=== PATIENT | male | born 1930 | race Caucasian/White ===

== ENCOUNTER 2016-09-06 22:38 | Emergency (ER) | payer MEDICARE, OTHER ==
[2016-09-06 22:59] VITALS: BP 138/57
== END 2016-09-06 23:50 | disposition left against medical advice (07) ==
LOC: ER 22:38
DX: Z53.21 Procedure and treatment not carried out due to patient leaving prior to being seen by health care provider (principal)

== ENCOUNTER → 2016-10-04 | Outpatient (CLI) | payer MEDICARE, OTHER ==
--- NOTE | 2016-10-05 16:34 | RADIOLOGY REPORT (SQ) ---
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 TECHNIQUE: Blood glucose level was verified. Above dose of FDG was injected intravenously. 2-D seg mented attenuation correction images were obtained from the base of the skull to the midthighs. Nonc ontrast CT images were obtained for attenuation correction and fusion with emission images. CT image s were performed without oral or intravenous contrast and are not sensitive for parenchymal lesions. A series of overlapping emission PET images were obtained. Images reviewed and manipulated at [facility] by the radiologist. Images stored on PACS. LIMITATIONS: None. FINDINGS: HEAD AND NECK: A 1.5 x 1.3 cm nodule is present at the angle of mandible on axial image 37 with SUV of 7.4. 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 CHEST: No areas of abnormal metabolic activity in the chest. ABDOMEN AND PELVIS: No areas of abnormal metabolic activity in the abdomen or pelvis. Expected physi ologic activity is present in the genitourinary system and bowel. PROXIMAL LOWER EXTREMITIES: No areas of abnormal metabolic activity in the soft tissues of the lower extremities. BONES: No abnormal metabolic activity in the visualized skeleton. Diffuse degenerative changes lumba r spine ADDITIONAL CT FINDINGS: Pacemaker. Post appendectomy and prostatectomy. OTHER: Blood pool activity 1.7 SUV, liver activity 2.0 SUV IMPRESSION: Solitary hypermetabolic lymph node in the right neck. TECHNICAL DOCUMENTATION: JOB ID: [id number] [employer]- All Rights Reserved
== END ==
LOC: RAD 19:32
PROVIDERS: ATTEND Otolaryngology
DX: C76.0 Malignant neoplasm of head, face and neck (principal)
CPT/HCPCS: 78815; A9552

== ENCOUNTER → 2016-11-12 | Outpatient (CLI) | payer MEDICARE, OTHER ==
[~2016-11-12] MED LIST: AMINOPHYLLINE INJ/PF 250 MG/10 ML SDV IV ONE; REGADENOSON INJ 0.4 MG/5 ML DISP.SYRIN IV ONE
--- NOTE | 2016-11-13 10:47 | DRAGON STRESS TEST REPORT ---
INTRAVENOUS LEXISCAN CARDIOLITE STRESS TEST USING SINGLE PHOTON EMMISION COMPUTERIZED TOMOGRAPHIC. INDICATION : Angina pectoris CARDIAC RISK FACTORS: Hypertension, RESTING EKG: Sinus rhythm, nonspecific T-wave inversion noted lateral and inferior shani STRESS EKG: No significant changes noted with LexiScan bolus REASON FOR TERMINATION: Protocol. PROCEDURE REPORT: Baseline heart rate 60 beats per minute with blood pressure of 152/80. Patient had no significant complaints. Heart rate at 2 minutes post bolus 85 with a blood pressure of 149/76. 3 minutes post bolus heart rate 83 with blood pressure of 166/79. No significant EKG changes were noted. Patient had no significant complaints during the procedure or postprocedure. Patient injected with Aminophyllin 75 mg at 3 minutes or later after Lexiscan bolus. CONCLUSIONS: Normal EKG and hemodynamic response to IV LexiScan. NUCLEAR DATA: At rest the patient was given [10.13] millicuries of technetium 99 sestamibi injected intravenously. As per protocol rest gated SPECT images were obtained. Subsequently the patient was given intravenous LexiScan at a dose of 0.4 mg in 5 mL intravenously, followed by flush with normal saline. Subsequently the stress dose of [30.7] millicuries of technetium 99 sestamibi was injected intravenously. As per protocol stress gated images were obtained. NUCLEAR INTERPRETATION: Both raw and processed data were used for interpretation. Visual, qualitative, computer-generated quantitative data was used. There was good myocardial uptake of technetium compound. Motion artifact and soft tissue attenuations were noted. Increased visceral uptake was noted. No definitive areas of transient perfusion defect noted. No definitive areas of fixed perfusion defect or scars noted. Normal apical thinning noted, based on decreased uptake just at the LV apex but no corresponding apical wall motion abnormalities were noted. EKG gated imaging showed LV EF at 59 %, rest and stress gated EF similar visually. T. I D. ratio was 1.12. Lung heart ratio noted to be within normal limits 0.31. No significant extracardiac and abnormal radiotracer activities were noted. RV free wall uptake was noted to be WNL. IMPRESSION: Also refer to comments under nuclear interpretation. Also test results needs to be interpreted in the context of pretest probability. 1. There is no definitive scintigraphic evidence of LexiScan induced myocardial ischemia. 2. There is no definitive scintigraphic evidence of myocardial infarction/ scar. Normal apical thinning noted, based on decreased uptake just at the LV apex but no corresponding apical wall motion abnormalities were noted. 3. EKG gated imaging shows left ventricular ejection fraction of approximately 59 %. 4. Clinical correlation requested as occasionally single vessel disease or balanced ischemia could be missed. In approximately 10% of the cases Lexiscan may not cause adequate vasodilatory stress. RECOMMENDATIONS: Aggressive risk factor modification, medical therapy. Clinical correlation with echocardiogram derived ejection fraction. Inability to exercise by itself can lead to increased cardiovascular event risks. Consider cardiology consultation and or follow-up if clinically indicated. I AM AVAILABLE FOR CARDIOLOGY CONSULTATION AND FOLLOWUP IF REQUESTED BY PMD Reddy Styles M.D., CHRIS Pneumatic Jack Operator golf ball molder, Board certified in cardiovascular diseases, Nuclear cardiology, Echocardiography Cardiac CT and cardiac MRI Ph. [phone] [facility]
== END ==
LOC: RAD 07:19
DX: I42.9 Cardiomyopathy, unspecified (principal)
CPT/HCPCS: 93017; 78452; A9500; J2785; J0280; Q9969

== ENCOUNTER 2017-11-15 22:35 | Emergency (ER) | payer MEDICARE, OTHER ==
[2017-11-16] MEDS ORDERED: OXYMETAZOLINE HCL 0.05% NASAL SPRAY 15 ML BOTTLE NASL ONE (00:11)
--- NOTE | 2017-11-16 00:11 | ER Document Report ---
ED General - General Chief Complaint: Nose Bleed Stated Complaint: NOSE BLEED Time Seen by Provider: 11/15/17 23:38 Notes: Patient is an 87-year-old male with a past medical history of atrial fibrillation currently anticoagulated on Xarelto who presents with complaints of epistaxis from his left nostril that has been intermittent for the past 3-4 hours. Patient has tried treating the bleeding with direct pressure which he states has not been successful in getting the bleeding to stop permanently. No history of similar symptoms in the past. He does describe the amount of bleeding as mild. He denies any associated lightheadedness, orthostasis, chest pain, shortness of breath, vomiting or syncope. He has not contacted his general doctor regarding today's concerns. No obvious trigger for today's episode although he does admit to nose picking. TRAVEL OUTSIDE OF THE [place] IN LAST 30 DAYS: No - Related Data Allergies/Adverse Reactions: No Known Allergies Allergy (Verified 07/26/15 05:17) Past Medical History - General Information source: Patient - Social History Smoking Status: Never Smoker Frequency of alcohol use: None Drug Abuse: None Lives with: Family Family History: Reviewed & Not Pertinent Patient has suicidal ideation: No Patient has homicidal ideation: No - Past Medical History Cardiac Medical History: Reports: Hx Hypertension Pulmonary Medical History: Neurological Medical History: Renal/ Medical History: Denies: Hx Peritoneal Dialysis Malignancy Medical History: Reports Hx Prostate Cancer GI Medical History: Reports: Hx Gastroesophageal Reflux Disease Musculoskeletal Medical History: Past Surgical History: Reports: Hx Cardiac Surgery - pacer, Hx Urinary Tract Surgery - PROSTATECTOMY - Immunizations Hx Diphtheria, Pertussis, Tetanus Vaccination: No Hx Pneumococcal Vaccination: 03/29/02 Review of Systems - Review of Systems Notes: Constitutional: Negative for fever. HENT: Positive for nosebleed Eyes: Negative for visual changes. Cardiovascular: Negative for chest pain. Respiratory: Negative for shortness of breath. Gastrointestinal: Negative for abdominal pain, vomiting or diarrhea. Genitourinary: Negative for dysuria. Musculoskeletal: Negative for back pain. Skin: Negative for rash. Neurological: Negative for headaches, weakness or numbness. 10 point ROS negative except as marked above and in HPI. Physical Exam - Vital signs Vitals: Temp Pulse Resp BP Pulse Ox 97.8 F 65 18 190/86 H 93 11/15/17 22:51 11/15/17 22:51 11/15/17 22:51 11/15/17 22:51 11/15/17 22:51 Interpretation: Hypertensive Notes: PHYSICAL EXAMINATION: GENERAL: Well-appearing, well-nourished and in no acute distress. HEAD: Atraumatic, normocephalic. EYES: Pupils equal round and reactive to light, extraocular movements intact, sclera anicteric, conjunctiva are normal. ENT: nares patent, small excoriation to the mid central nasal septum on the left without active bleeding, oropharynx clear without exudates. Moist mucous membranes. NECK: Normal range of motion, supple without lymphadenopathy LUNGS: Breath sounds clear to auscultation bilaterally and equal. No wheezes rales or rhonchi. HEART: Regular rate and rhythm without murmurs ABDOMEN: Soft, nontender, normoactive bowel sounds. No guarding, no rebound. No masses appreciated. EXTREMITIES: Normal range of motion, no pitting or edema. No cyanosis. NEUROLOGICAL: No focal neurological deficits. Moves all extremities spontaneously and on command. PSYCH: Normal mood, normal affect. SKIN: Warm, Dry, normal turgor, no rashes or lesions noted. Course - Re-evaluation Re-evalutation: 11/16/17 00:09 Patient presents with intermittent epistaxis from the left naris that has now stopped. On examination patient has no active bleeding. He is on Xarelto for atrial fibrillation. Evaluation of the left naris shows that there is a superficial scratch along the nasal septum. No active bleeding but given that he had had recurrent bleeding from the area silver nitrate was applied to the area to prevent recurrent bleeding. Oxymetazoline was then instilled in the nostril. I do not believe labs are indicated as the patient has only had a trickling bleed per family at the bedside and has no active bleeding at this time. Vitals are likewise within normal limits. Patient is agreement with avoiding labs at this point. No additional exam findings or concerning features in history. At this time will discharge with return precautions and follow-up recommendations. Verbal discharge instructions given a the bedside and opportunity for questions given. Medication warnings reviewed. Patient is in agreement with this plan and has verbalized understanding of return precautions and the need for primary care follow-up in the next 24-72 hours. - Vital Signs Vital signs: Temp Pulse Resp BP Pulse Ox 98.5 F 60 18 177/78 H 96 11/16/17 00:19 11/16/17 00:19 11/16/17 00:19 11/16/17 00:19 11/16/17 00:19 Discharge - Discharge Clinical Impression: Epistaxis, Anticoagulated by anticoagulation treatment Condition: Good Disposition: HOME, SELF-CARE Additional Instructions: You were seen today for a nosebleed. If this restarts please apply direct pressure to the area for 15 minutes without releasing pressure. You can use 4- 5 sprays the Afrin (oxymetazoline) spray that was given to you here in the emergency room into the affected side prior to applying the pressure. You need to apply vasaline or a similar product along the inside of the side of the nose that is bleeding twice daily to help heal the inside of your nose. Please return to emergency department if these measures do not control the bleeding. Please also return if you pass out, have significant pain of the nose or face, or any other symptoms that are concerning to you. Your primary care doctor regarding today's visit. Referrals: LOCALMD,NO [NO LOCAL MD] - Follow up as needed
[2017-11-16 00:20] VITALS: BP 177/78
== END 2017-11-16 00:23 | disposition home or self-care (01) ==
LOC: ER 22:35
DX: S00.31XA Abrasion of nose, initial encounter (principal); X58.XXXA Exposure to other specified factors, initial encounter; I10 Essential (primary) hypertension; I48.91 Unspecified atrial fibrillation; Z79.01 Long term (current) use of anticoagulants; Z85.46 Personal history of malignant neoplasm of prostate; Z95.0 Presence of cardiac pacemaker
CPT/HCPCS: 99283; J3490

== ENCOUNTER 2018-07-11 06:09 | Emergency (ER) | payer MEDICARE, OTHER ==
--- NOTE | 2018-07-11 07:01 | EKG REPORT ---
SEVERITY:- ABNORMAL ECG - ATRIAL-PACED COMPLEXES vs sinus rhythm NONSPECIFIC IVCD WITH LAD INFERIOR INFARCT, AGE INDETERMINATE : Confirmed by: Reddy Styles 11-Jul-2018 07:00:24
[2018-07-11 07:39] LABS: ABSOLUTE EOSINOPHILS # (AUTO) 0.1 10^3/uL (0.0-0.6); ABSOLUTE LYMPHOCYTES (AUTO) 0.6 10^3/uL (0.5-4.7); ABSOLUTE MONOCYTES (AUTO) 0.4 10^3/uL (0.1-1.4); ABSOLUTE NEUT (AUTO) 2.4 10^3/uL (1.7-8.2); BASOPHILS % (AUTO) 0.5 % (0-2); EOSINOPHILS % (AUTO) 3.7 % (0-6); HEMATOCRIT 40.3 % (37.9-51.0); HEMOGLOBIN 13.7 g/dL (13.5-17.0); LYMPHOCYTES % (AUTO) 16.3 % (13-45); MEAN CORPUSCULAR HEMOGLOBIN 32.5 pg (27.0-33.4); MEAN CORPUSCULAR VOLUME 96 fl (80-97); MONOCYTES % (AUTO) 10.9 % (3-13); PLATELET COUNT 227 10^3/uL (150-450); RED BLOOD COUNT 4.22 10^6/uL (4.35-5.55); RED CELL DISTRIBUTION WIDTH 13.9 % (11.5-14.0); SEGMENTED NEUTROPHILS % (AUTO) 68.6 % (42-78); TOTAL CELLS COUNTED % (AUTO) 100 %; WHITE BLOOD COUNT 3.5 10^3/uL (4.0-10.5)
[2018-07-11 07:58] LABS: ALANINE AMINOTRANSFERASE 14 U/L (21-72); ALBUMIN 3.5 g/dL (3.5-5.0); ALKALINE PHOSPHATASE 66 U/L (38-126); ANION GAP 5 (5-19); ASPARTATE AMINO TRANSFERASE 19 U/L (17-59); BILIRUBIN,DIRECT 0.3 mg/dL (0.0-0.4); BILIRUBIN,TOTAL 0.5 mg/dL (0.2-1.3); BLOOD UREA NITROGEN 36 mg/dL (7-20); CALCIUM 9.6 mg/dL (8.4-10.2); CARBON DIOXIDE 25 mmol/L (22-30); CHLORIDE 110 mmol/L (98-107); CREATINE KINASE 91 U/L (55-170); GLUCOSE 96 mg/dL (75-110); POTASSIUM 4.4 mmol/L (3.6-5.0); TOTAL PROTEIN 6.6 g/dL (6.3-8.2)
[2018-07-11 08:09] LABS: CREATINE KINASE MB 0.92 ng/mL (<4.55)
[2018-07-11 08:11] LABS: TROPONIN I < 0.012 ng/mL
--- NOTE | 2018-07-11 08:13 | RADIOLOGY REPORT (SQ) ---
EXAM DESCRIPTION: CHEST SINGLE VIEW COMPLETED DATE/TIME: 07/11/2018 7:56 am REASON FOR STUDY: bed 4 cp COMPARISON: 01/20/2015 EXAM PARAMETERS: NUMBER OF VIEWS: One view. TECHNIQUE: Single frontal radiographic view of the chest acquired. RADIATION DOSE: NA LIMITATIONS: None. FINDINGS: LUNGS AND PLEURA: Findings of COPD, stable. Stable bibasilar atelectasis or scar. No ac prema pulmonary consolidation. No pneumothorax or pleural effusion. MEDIASTINUM AND HILAR STRUCTURES: No masses. Contour normal. HEART AND VASCULAR STRUCTURES: Heart normal in size. Normal vasculature. BONES: No acute findings. HARDWARE: Cardiac pacemaker, unchanged finding. OTHER: No other significant finding. IMPRESSION: 1. No significant interval changes since the prior examination dated 01/20/2015. Findi ngs of COPD and stable bibasilar scar atelectasis. No acute findings. TECHNICAL DOCUMENTATION: JOB ID: [id number] [employer]- All Rights Reserved Reading location - IP/workstation name: [email or web address]
--- NOTE | 2018-07-11 08:31 | ER Document Report ---
ED General <KELLEY PRITCHETT Miroslava - Last Filed: 07/11/18 09:20> - General TRAVEL OUTSIDE OF THE [place] IN LAST 30 DAYS: No <FARAZ KIDD - Last Filed: 07/11/18 09:26> - General Chief Complaint: Arrhythmia Stated Complaint: PACEMAKER ALARM ALERT Time Seen by Provider: 07/11/18 08:13 Primary Care Provider: ROBBI SEGAL MD [Primary Care Provider] - Follow up as needed - [facility] Notes: Patient is an 87-year-old male with a history of A. fib/on Xarelto, pacemaker placement, CKD who presents stating that his bedside pacer machine was set up indicating his pacemaker may have went off. Patient states that this is the first time it has happened and he has otherwise been feeling well. Patient states that he did have some bad weather last night and soon after he woke up and noticed the machine on, his house did lose power. Patient has no concerns or complaints. Denies drug allergies. He has been eating and drinking without difficulty. He is urinating normally. He is acting and behaving normally per family member. His pacemaker company is [employer]. Denies any headache, fever, neck pain, URI, sore throat, chest pain, palpitations, syncope, cough, shortness of breath, wheeze, dyspnea, abdominal pain, nausea/vomiting/diarrhea, urinary retention, dysuria, hematuria, loss of control of bowel or bladder, numbness/tingling, saddle anesthesia, muscle paralysis/weakness, or rash. (FARAZ KIDD) - Related Data Allergies/Adverse Reactions: No Known Allergies Allergy (Verified 07/11/18 07:33) Past Medical History - Social History Smoking Status: Unknown if Ever Smoked Family History: Reviewed & Not Pertinent Patient has suicidal ideation: No Patient has homicidal ideation: No - Past Medical History Cardiac Medical History: Reports: Hx Hypertension Pulmonary Medical History: Neurological Medical History: Renal/ Medical History: Denies: Hx Peritoneal Dialysis Malignancy Medical History: Reports Hx Prostate Cancer GI Medical History: Reports: Hx Gastroesophageal Reflux Disease Musculoskeletal Medical History: Past Surgical History: Reports: Hx Cardiac Surgery - pacer, Hx Urinary Tract Surgery - PROSTATECTOMY - Immunizations Hx Diphtheria, Pertussis, Tetanus Vaccination: No Hx Pneumococcal Vaccination: 03/29/02 <FARAZ KIDD - Last Filed: 07/11/18 09:26> Review of Systems - Review of Systems -: Yes All other systems reviewed and negative <FARAZ KIDD - Last Filed: 07/11/18 09:26> Physical Exam <FARAZ KIDD - Last Filed: 07/11/18 09:26> - Vital signs Vitals: Temp Pulse Resp BP Pulse Ox 97.4 F 71 16 172/101 H 100 07/11/18 06:20 07/11/18 06:20 07/11/18 06:20 07/11/18 06:20 07/11/18 06:20 - Notes Notes: PHYSICAL EXAMINATION: GENERAL: Well-appearing, well-nourished and in no acute distress. Answers questions appropriately. HEAD: Atraumatic, normocephalic. EYES: Pupils equal round and reactive to light, extraocular movements intact, sclera anicteric, conjunctiva are normal. ENT: Nares patent and without discharge. oropharynx clear without exudates. No tonsilar hypertrophy or erythema. Moist mucous membranes. NECK: Normal range of motion, supple without lymphadenopathy LUNGS: Breath sounds clear to auscultation bilaterally and equal. No wheezes rales or rhonchi. HEART: Regular rate and rhythm without murmurs, rubs, gallops. ABDOMEN: Soft, nontender, nondistended abdomen. No guarding, no rebound. No masses appreciated. Normal bowel sounds present. No CVA tenderness bilaterally. Musculoskeletal: FROM to passive/active. Strength 5+/5 bilaterally upper and lower extremities. No asymmetry to LE's. Extremities: No cyanosis, clubbing, or edema b/l. Peripheral pulses 2+. Capillary refill less than 3 seconds. NEUROLOGICAL: Normal speech, normal gait. Cranial nerves grossly intact. Alert and oriented x4. PSYCH: Normal mood, normal affect. SKIN: Warm, Dry, normal turgor, no rashes or lesions noted. (FARAZ KIDD) Course - Laboratory Result Diagrams: 07/11/18 06:45 07/11/18 06:45 <KELLEY PRITCHETT - Last Filed: 07/11/18 09:20> - Laboratory Result Diagrams: 07/11/18 06:45 07/11/18 06:45 <FARAZ KIDD - Last Filed: 07/11/18 09:26> - Re-evaluation Re-evalutation: 07/11/18 09:20 I personally and independently obtained patient history and examined the patient and have reviewed the APC's note, reviewed, discussed and agree with their assessment and plan. HISTORY OF PRESENT ILLNESS: Patient is a 87-year-old male that presents to the emergency department for chief complaint of concern for pacer firing. Patient woke up and saw light on his defibrillator machine next to the bed and was concerned his pacer may have gone off. He has remained completely asymptomatic MEDICAL DECISION MAKING: Patient seen and evaluated. He is asymptomatic currently. He reports no symptoms overnight. Pacer interrogation was negative for defibrillation. He is otherwise stable and will be discharged home. Please review detail APC documentation. *Note is created using voice recognition software and may contain spelling, syntax or grammatical errors. (KELLEY PRITCHETT) 07/11/18 09:25 Patient is an afebrile, well-hydrated 87-year-old male who presents to the ED with worried well visit for possible pacer firing. I did speak with his rep and we interrogated the pacer and found no evidence of firing or complications. He believes that the machine could have been resetting with power surges that were noted last night by the patient. vitals are acceptable without any significant tachycardia, tachypnea, or hypoxia. PE is otherwise unremarkable. Patient is nontoxic-appearing and is tolerating p.o. without any difficulties. Pt is and has been asymptomatic. CBC, CMP, EKG/cardiac enzyme, chest x-ray are all unremarkable for any acute pathology. Patient does not have any chest pain, dyspnea, or shortness of breath. CMP acceptable for his CKD. Patient's presentation and symptomatology creates low suspicion for ACS, PE, pneumothorax, pericarditis, dissection, respiratory compromise, severe dehydration, sepsis, meningitis, or other systemic emergent condition at this time. Patient is aware that his condition can change from initial presentation and he needs to monitor symptoms closely and seek medical attention for any acute changes. Pt is feeling 'well' and would like to go home. Recommend conservative measures for symptoms. Recheck with your PCM in 2-3 days. Consider consult with Cardiology. Return to the ED with any worsening/concerning symptoms otherwise as reviewed in discharge. Patient is in agreement. (FARAZ KIDD) - Vital Signs Vital signs: Temp Pulse Resp BP Pulse Ox 97.4 F 71 19 168/93 H 93 07/11/18 06:20 07/11/18 06:20 07/11/18 06:59 07/11/18 07:00 07/11/18 06:59 - Laboratory Laboratory results interpreted by me: 07/11/18 07/11/18 06:45 06:45 WBC 3.5 L RBC 4.22 L Chloride 110 H BUN 36 H Creatinine 2.11 H Est GFR ( Amer) 36 L Est GFR (Non-Af Amer) 30 L ALT 14 L Discharge <KELLEY PRITCHETT - Last Filed: 07/11/18 09:20> <FARAZ KIDD - Last Filed: 07/11/18 09:26> - Discharge Clinical Impression: Encounter for interrogation of cardiac pacemaker Condition: Stable Disposition: HOME, SELF-CARE Additional Instructions: Maintain adequate fluid and food intake Take home medications as directed healthy diet Monitor blood pressure daily and keep a log Monitor symptoms for any acute changes Recheck with your PCM in 2-3 days Consider a follow-up with cardiology Return to the ED with any worsening symptoms and/or development of fever, headache, chest pain, palpitations, syncope, shortness of breath, trouble breathing, abdominal pain, n/v/d, blood in stool/urine, loss of control of bowel/bladder, urinary retention, muscle weakness/paralysis, numbness/tingling, or other worsening symptoms that are concerning to you. Forms: Elevated Blood Pressure Referrals: ROBBI SEGAL MD [Primary Care Provider] - 07/14/18
[2018-07-11 11:21] VITALS: BP 198/86
== END 2018-07-11 11:21 | disposition home or self-care (01) ==
LOC: ER 06:09
DX: Z45.018 Encounter for adjustment and management of other part of cardiac pacemaker (principal); R00.2 Palpitations; I48.91 Unspecified atrial fibrillation; Z79.01 Long term (current) use of anticoagulants; I10 Essential (primary) hypertension
CPT/HCPCS: 36415; 71045; 80053; 82550; 82553; 84484; 85025; 93005; 93010; 99284

== ENCOUNTER 2018-11-10 20:52 | Emergency (ER) | payer MEDICARE, OTHER ==
--- NOTE | 2018-11-10 23:00 | ER Document Report ---
ED General - General Chief Complaint: Nose Bleed Stated Complaint: NOSE BLEED Time Seen by Provider: 11/10/18 22:49 Primary Care Provider: DAVID GOMEZ DO [ASSOCIATE] - Follow up in 3-5 days ROBBI SEAGL MD [Primary Care Provider] - Follow up as needed TRAVEL OUTSIDE OF THE [place] IN LAST 30 DAYS: No - HPI Notes: 88-year-old male presents of epistaxis. Patient states his nose started bleeding spontaneously tonight, he held pressure for 10 minutes and it was still bleeding so he comes here for evaluation. Having a couple of times over the last week or 2. He has had some nasal congestion. Denies any nasal trauma. Of note, he is a Xarelto. When questioned as to why, he indicates because of his "pacemaker". He is uncertain if he has an history of atrial fibrillation. No falls, no trauma. No dizziness or lightheadedness. Gradual onset, nonradiating, moderate intensity. No other modifying factors, no other associated symptoms, no other provocative or palliative factors. - Related Data Allergies/Adverse Reactions: No Known Allergies Allergy (Verified 07/11/18 07:33) Past Medical History - Social History Smoking Status: Unknown if Ever Smoked Family History: Reviewed & Not Pertinent Patient has suicidal ideation: No Patient has homicidal ideation: No - Past Medical History Cardiac Medical History: Reports: Hx Hypertension Pulmonary Medical History: Neurological Medical History: Renal/ Medical History: Denies: Hx Peritoneal Dialysis Malignancy Medical History: Reports Hx Prostate Cancer GI Medical History: Reports: Hx Gastroesophageal Reflux Disease Musculoskeletal Medical History: Past Surgical History: Reports: Hx Cardiac Surgery - pacer, Hx Urinary Tract Surgery - PROSTATECTOMY - Immunizations Hx Diphtheria, Pertussis, Tetanus Vaccination: No Hx Pneumococcal Vaccination: 03/29/02 Review of Systems - Review of Systems Notes: Review of systems as in the history of present illness, otherwise negative x 10 systems. Physical Exam - Vital signs Vitals: Temp Pulse Resp BP Pulse Ox 98.0 F 66 18 189/88 H 94 11/10/18 20:57 11/10/18 20:57 11/10/18 20:57 11/10/18 20:57 11/10/18 20:57 - Notes Notes: General: Well developed . HEENT: Normocephalic, atraumatic. Pupils equal round reactive to light. No JVD. There is hyperemia and small clot about Oracio box plexus on the left side. No active bleeding Chest: No trauma. Respiratory: Good air exchange, normal excursion. Cardiac: Regular rhythm. No murmurs or gallops. Abdomen: Soft, benign. Nondistended. Nontender. Back: No asymmetry or gross abnormality. Motor: Grossly normal power and tone. Neurologic: Alert, nonfocal. Cranial nerves II-12 are intact. Sensation intact. Vascular: Well perfused. Normal peripheral pulses. Skin: No petechiae or purpura. Course - Re-evaluation Re-evalutation: 11/10/18 23:03 Well-appearing 88-year-old male with the aforementioned symptoms. Although his bleeding is stopped, it is been recurrent and he is on Xarelto. I have actually suggested that we proceed with nasal packing to be safe but he has declined. We have gone over the risks including continued and significant bleeding. I have instructed him with how to hold pressure and hold for at least 20 or 30 minutes at a time. Referred to ENT and his primary care doctor. Blood pressure is elevated here in the first initial check. May be related to stress and anxiety. I have cautioned him to become compliant with his blood pressure medication, have this rechecked in 24 to 48 hours. I am somewhat hesitant to arbitrarily begin increasing this 88-year-old male's blood pressure medication without a trend showing clear uncontrolled hypertension. - Vital Signs Vital signs: Temp Pulse Resp BP Pulse Ox 98.0 F 66 18 189/88 H 94 11/10/18 20:57 11/10/18 20:57 11/10/18 20:57 11/10/18 20:57 11/10/18 20:57 Discharge - Discharge Clinical Impression: Epistaxis Hypertension Qualifiers: Hypertension type: unspecified Qualified Code(s): I10 - Essential (primary) hypertension Condition: Stable Disposition: HOME, SELF-CARE Instructions: High Blood Pressure ([facility]), Nosebleed Instructions ([facility]) Additional Instructions: Make sure you take your blood pressure medicine as directed, follow-up with your regular doctor in 24 to 72 hours for a blood pressure recheck Referrals: ROBBI SEGAL MD [Primary Care Provider] - Follow up as needed DAVID GOMEZ DO [ASSOCIATE] - Follow up in 3-5 days
[2018-11-10 23:09] VITALS: BP 198/84
== END 2018-11-10 23:11 | disposition home or self-care (01) ==
LOC: ER 20:52
DX: R04.0 Epistaxis (principal); R09.81 Nasal congestion; I10 Essential (primary) hypertension; Z79.02 Long term (current) use of antithrombotics/antiplatelets; Z95.0 Presence of cardiac pacemaker; Z85.46 Personal history of malignant neoplasm of prostate
CPT/HCPCS: 99283